=== PATIENT | female | born 1955 | race Caucasian/White ===

== ENCOUNTER 2022-07-18 06:56 | Outpatient (CLI) | payer MEDICARE, SELFPAY ==
[2022-07-18 08:13] LABS: Basophils Absolute Auto 0.04 K/mm3 (0.00-0.10); Basophils Percent Auto 0.5 % (0.0-1.0); Eosinophils Absolute Auto 0.15 K/mm3 (0.02-0.50); Eosinophils Percent Auto 1.8 % (1.0-6.0); Hematocrit 43.4 % (35.0-42.0); Hemoglobin 14.1 g/dL (11.7-13.8); Immature Granulocyte Absolute 0.03 K/mm3 (0.00-0.00); Immature Granulocyte Percent A 0.4 % (0.0-0.0); Lymphocytes Absolute Auto 2.25 K/mm3 (1.10-4.50); Lymphocytes Percent Auto 27.4 % (18.0-42.0); Mean Corpuscular HGB Conc 32.5 g/dL (32.0-36.0); Mean Corpuscular Hemoglobin 29.3 pg (27.0-31.0); Mean Corpuscular Volume 90.2 fL (78.0-102.0); Mean Platelet Volume 10.4 fl (9.2-11.8); Monocytes Absolute Auto 0.67 K/mm3 (0.10-0.90); Monocytes Percent Auto 8.2 % (2.0-11.0); Neutrophils Absolute Auto 5.1 K/mm3 (1.7-7.2); Neutrophils Percent Auto 61.7 % (50.0-70.0); Platelet Count Result 307 K/mm3 (150-420); Red Blood Count 4.81 M/mm3 (4.20-5.40); Red Cell Distribution Width 13.2 % (11.6-14.4); White Blood Count 8.2 K/mm3 (4.8-10.8)
[2022-07-18 08:20] LABS: Hemoglobin A1C 6.1 % (<5.7)
[2022-07-18 08:29] LABS: Add Urine Microscopic? NO; Appearance Urine Clear (Clear); Bilirubin Urine Negative (Negative); Blood Urine Negative (Negative); Color Urine Yellow (Yellow); Glucose Urine UA Negative (Negative); Ketones Urine Negative (Negative); Leukocyte Esterase Ur Negative (Negative); Nitrate Urine Negative (Negative); Protein Urine Negative (Negative); Specific Grav Ur 1.025 (1.010-1.020); Urobilinogen Urine 0.2 mg/dL (0.2-1.0)
[2022-07-18 08:33] LABS: Creatinine Urine 120.34 mg/dL (40-278); MALB Creatinine Ratio 20.6 mg/g (0-30); Microalbumin Urine Random 24.8 mg/L
[2022-07-18 08:47] LABS: Alanine Aminotransferase 22 U/L (14-59); Albumin Level 3.4 g/dL (3.4-5.0); Alkaline Phosphatase 117 U/L (46-116); Anion Gap 9 mmol/L (8-16); Aspartate Amino Transferase 11 U/L (15-37); Bilirubin,Total 0.6 mg/dL (0.00-1.00); Blood Urea Nitrogen 17 mg/dL (7-18); Calcium 8.8 mg/dL (8.5-10.1); Carbon Dioxide 27 mmol/L (21-32); Chloride 104 mmol/L (98-108); Cholesterol 174 mg/dL (0-200); Estimated Glomerular Filt Rate > 60; Glucose 115 mg/dL (70-99); HDL Direct 41 mg/dL (40-60); LDL Cholesterol Calculated 110 mg/dL (<130); NT Pro B Type Natriuretic Pept 392 pg/mL (0-125); Osmolality Calculated 292 mOsm/kg (285-295); Potassium 4.8 mmol/L (3.5-5.1); Sodium 140 mmol/L (136-145); Total Protein 7.3 g/dL (6.4-8.2); Triglycerides 117 mg/dL (0-150)
== END 2022-07-18 06:57 | disposition home or self-care (01) ==
LOC: CHSLAB 07:00
PROVIDERS: PCP Internal Medicine; Visit Provider Internal Medicine
DX: I10 Essential (primary) hypertension (principal); I48.91 Unspecified atrial fibrillation; I50.9 Heart failure, unspecified; E11.9 Type 2 diabetes mellitus without complications
CPT/HCPCS: 36415; 80053; 80061; 81003; 82043; 83036; 83880; 84443; 85025

== ENCOUNTER 2022-09-26 16:44 | Observation (INO) | payer MEDICARE, SELFPAY ==
[2022-09-26] VITALS (18 sets, daily range): BP systolic 112–162; BP diastolic 61–104; PULSE 70–112; RESP 16–20; TEMP 36.6–37.3; O2SAT 90–100; BMI 52.7
--- NOTE | ~2022-09-26 | CT_ITS ---
EXAMINATION: CT BRAIN W/O DATE: 09/26/2022 18:39 INDICATION: Anterior headache. Nausea, vomiting and diarrhea. TECHNIQUE: Computed tomography (CT) of the head was performed without intravenous contrast. The dose- length product was 681.00 mGy-cm. Automated exposure control and iterative reconstruction technique w ere employed. COMPARISON: No prior studies for comparison. FINDINGS: Normal brain parenchymal volume for age. Normal mendiola-white differentiation. No acute intrac ranial hemorrhage, infarction, mass or mass effect. No ventriculomegaly or midline shift. Midline sagittal images demonstrate a normal corpus callosum, c raniovertebral junction and sella turcica. Basilar cisterns are patent. Cerebellar tonsils extend bel ow the foramen magnum 8 mm, consistent with. Malformation. There is mild mucosal thickening of the ethmoid sinuses. Mastoids are pneumatized. IMPRESSION: 1. No acute intracranial abnormality. 2: Chiari-type 1 malformation. 3: Ethmoid sinusitis. Reviewed, dictated and finalized at location A.
--- NOTE | ~2022-09-26 | XR_ITS ---
XR chest 1V portable 09/26/2022 18:40 Indication: Productive cough. Wheezing. Procedure: AP portable chest Comparison: 06/27/2018 Findings: There is right perihilar infiltrates with peribronchial thickening. Cardiomegaly. No pleura l effusion or pneumothorax. No acute osseous abnormality. Impression: 1: Right perihilar infiltrates, suspicious for pneumonia. Reviewed, dictated and finalized at location A. Impression: 1: Right perihilar infiltrates, suspicious for pneumonia.
--- NOTE | 2022-09-26 16:51 | ED.GENADULT ---
HPI - General Adult General Chief complaint: Nausea/Vomiting/Diarrhea Stated complaint: headache; diarrhea Time Seen by Provider: 09/26/22 16:51 History of Present Illness HPI narrative: The patient is a 67-year-old woman with history of diabetes, atrial fibrillation on Eliquis, obesity, GERD, hypertension. Status post bilateral total knee replacement, hysterectomy, and right ankle ORIF. She has never smoked. For the last 4 days, the patient has had nausea vomiting and diarrhea. Today and yesterday, she has had 4 episodes of emesis each and has had 5 loose bowel movements each day. She does have an anterior headache. She does have a cough productive of sputum associated with rhinorrhea and wheezing. No fevers or chills or diaphoresis. Does have malaise. No dyspnea or chest pain or nasal congestion or sore throat or earache or abdominal pain or hematochezia or melena or constipation. Initial blood pressure by EMS was 180/100. She received Zofran 4 mg ODT by EMS and was transported here. Her nausea has resolved. She is a bit tachycardic on arrival 106. Related Data Home Medications Medication Instructions Recorded Confirmed apixaban 5 mg tablet (Eliquis) 5 mg PO BID 09/26/22 09/26/22 diltiazem HCl 120 mg 120 mg PO DAILY 09/26/22 09/26/22 capsule,extended release 24 hr lisinopril 20 mg tablet 20 mg PO DAILY 09/26/22 09/26/22 metformin 500 mg tablet 500 mg PO BID 09/26/22 09/26/22 metoprolol tartrate 50 mg tablet 50 mg PO BID 09/26/22 09/26/22 omeprazole 40 mg capsule,delayed 40 mg PO DAILY 09/26/22 09/26/22 release Allergies Allergy/AdvReac Type Severity Reaction Status Date / Time No Known Allergies Allergy Verified 09/26/22 17:12 Review of Systems Review of Systems: All systems reviewed & are unremarkable except as noted in HPI and below Constitutional: Constitutional: Reports as per HPI, Reports no additional constitutional complaints, Denies chills, Denies excessive sweating, Reports fatigue, Denies fever(s), Reports headache(s) and Reports weakness ( Generalized) Eyes: Eyes: Reports as per HPI, Reports no additional eye complaints, Denies change in vision and Denies photophobia ENT: Reports system reviewed and no additional complaints, except as documented, Reports as per HPI, Denies dysphagia, Denies vertigo, Denies dizziness, Denies lip swelling, Denies nasal congestion, Denies sore throat, Denies throat swelling and Denies tongue swelling Comments: rhinorrhea present Cardiovascular: Cardiovascular: Reports as per HPI, Reports no additional cardiovascular complaints, Denies chest pain, Denies syncope, Denies rapid heart rate and Denies dyspnea Respiratory: Respiratory: Reports as per HPI, Reports no additional respiratory complaints, Denies chest congestion, Reports cough, Denies dyspnea and Reports wheezing Gastrointestinal: Gastrointestinal: Reports as per HPI, Reports no additional gastrointestinal complaints, Denies abdominal pain, Denies constipation, Denies dysphagia, Reports diarrhea, Reports nausea and Reports vomiting Genitourinary: Genitourinary: Reports as per HPI, Denies hematuria, Denies urinary frequency, Denies dysuria, Denies urinary incontinence and Denies urinary urgency Musculoskeletal: Musculoskeletal: Reports no additional musculoskeletal complaints, Denies back pain, Denies myalgias, Denies arthralgias, Denies joint swelling and Denies numbness Integumentary/Breasts: Skin/Breast: Reports system reviewed and no additional complaints, except as docu, Denies pruritus, Denies erythema, Denies rash and Denies skin ulcer Neurologic: Reports system reviewed and no additional complaints, except as documented, Reports as per HPI, Denies confusion, Denies vertigo, Denies dizziness, Denies syncope, Denies focal weakness and Denies numbness Psychiatric: Psychiatric: Reports as per HPI, Denies anxiety, Denies confusion, Denies depression, Denies homicidal ideation and Denies suicidal ideation Endocr
[2022-09-26] MEDS: IPRATROPIUM 0.5 MG/ALBUTEROL SULFATE 2.5 MG AMPUL.NEB 3 ML INHALATION ×2 (17:10→19:09)
[2022-09-26] MEDS: traMADol HCL (*CRX) 50 MG TABLET 100 MG PO (17:24)
[2022-09-26] MEDS: BENZONATATE 100 MG CAPSULE PO (17:24)
[2022-09-26] MEDS: guaiFENesin/DEXTROMETHORPHAN 5 ML UDC 10 ML PO (17:24)
[2022-09-26] MEDS: ACETAMINOPHEN 500 MG TABLET 1000 MG PO (17:25)
[2022-09-26 17:32] LABS: Basophils Absolute Auto 0.03 K/mm3 (0.00-0.10); Basophils Percent Auto 0.5 % (0.0-1.0); Eosinophils Absolute Auto 0.08 K/mm3 (0.02-0.50); Eosinophils Percent Auto 1.4 % (1.0-6.0); Hemoglobin 14.9 g/dL (11.7-13.8); Immature Granulocyte Absolute 0.02 K/mm3 (0.00-0.00); Immature Granulocyte Percent A 0.4 % (0.0-0.0); Lymphocytes Absolute Auto 1.47 K/mm3 (1.10-4.50); Lymphocytes Percent Auto 26.4 % (18.0-42.0); Mean Corpuscular HGB Conc 33.1 g/dL (32.0-36.0); Mean Corpuscular Volume 90.7 fL (78.0-102.0); Mean Platelet Volume 10.2 fl (9.2-11.8); Monocytes Absolute Auto 0.56 K/mm3 (0.10-0.90); Monocytes Percent Auto 10.1 % (2.0-11.0); Neutrophils Absolute Auto 3.4 K/mm3 (1.7-7.2); Neutrophils Percent Auto 61.2 % (50.0-70.0); Platelet Count Result 204 K/mm3 (150-420); Red Blood Count 4.96 M/mm3 (4.20-5.40); Red Cell Distribution Width 13.2 % (11.6-14.4); White Blood Count 5.6 K/mm3 (4.8-10.8)
[2022-09-26 17:53] LABS: Lactic Acid Reflex 0.8 mmol/L (0.4-2.0)
[2022-09-26] MEDS: SODIUM CHLORIDE 0.9% IV 1,000 ML 999 ML IV CONT (17:54)
[2022-09-26 17:56] LABS: Acetone Negative (Negative)
[2022-09-26] MEDS: LABETALOL HCL INJ 100 MG/20 ML VIAL 20 MG IV PUSH (17:57)
[2022-09-26 17:58] LABS: Strep Group A RT-PCR NOT DETECTED (Negative)
[2022-09-26] MEDS: methylPREDNISolone SOD SUCC 125 MG VIAL IV PUSH (18:01)
[2022-09-26] MEDS: KETOROLAC 30 MG/ML VIAL (*BKC) 15 MG IV PUSH (18:02)
[2022-09-26 18:04] LABS: Alanine Aminotransferase 47 U/L (14-59); Albumin Level 3.4 g/dL (3.4-5.0); Alkaline Phosphatase 118 U/L (46-116); Anion Gap 11 mmol/L (8-16); Aspartate Amino Transferase 24 U/L (15-37); Bilirubin,Total 0.5 mg/dL (0.00-1.00); Blood Urea Nitrogen 11 mg/dL (7-18); CRP 1.8 mg/dL (0.0-0.9); Calcium 8.4 mg/dL (8.5-10.1); Carbon Dioxide 26 mmol/L (21-32); Chloride 103 mmol/L (98-108); Estimated CRCL calculation 92 ml/min; Estimated Glomerular Filt Rate > 60; Glucose 106 mg/dL (70-99); Osmolality Calculated 289 mOsm/kg (285-295); Potassium 3.9 mmol/L (3.5-5.1); Sodium 140 mmol/L (136-145); Total Protein 7.7 g/dL (6.4-8.2)
[2022-09-26] MEDS: diphenhydrAMINE HCl INJ 50 MG/ML VIAL IV PUSH (18:04)
[2022-09-26 18:06] LABS: Amylase 42 U/L (25-115); Lipase 44 U/L (16-77); Magnesium 1.9 mg/dL (1.8-2.4)
[2022-09-26 18:09] LABS: Influenza A QL RT-PCR Negative (Negative); Influenza B QL RT-PCR Negative (Negative); SARS-CoV-2 RNA PCR Negative (Negative)
[2022-09-26 18:10] LABS: RSV RNA, RT-PCR Negative (Negative)
[2022-09-26 18:36] LABS: Erythrocyte Sedimentation Rate 22 mm/hr (0-20)
[2022-09-26] MEDS: cefTRIAXone 2 GM/NS 100 ML 2 GM/100 ML BAG IVPB (19:13)
--- NOTE | 2022-09-26 20:05 | PC.NURSE ---
ERP Dr Betancourt spoke to pt about 23 hr obs. due to pneumonia and pt still has wheezing and cough present. Pt is agreeable to staying.
[2022-09-26 20:21] LABS: Glucose Point of Care 162 mg/dl (65-105)
--- NOTE | 2022-09-26 20:26 | PC.NURSE ---
Call placed to floor for bed, pt to go to Rm 203 for obs.
[2022-09-26 21:37] LABS: Glucose Point of Care 129 mg/dl (65-105)
--- NOTE | 2022-09-26 23:42 | ADMGEN ---
This patient, Radha Silva, was admitted to 2nd Floor Room 203-2. Patient/family oriented to hospital policies and general routines including ID bracelet, bed and alarms, pain management, procedures, bathroom and other care routines, personal items, smoking policy, room service/diet, and visiting hours. Information on how to activate the Rapid Response Team has been discussed. Patient/Family are encouraged to report perceived risks to care and to ask questions if they do not understand what they are told or what they should do.
[2022-09-27] VITALS: BP 131/73; PULSE 94; RESP 20; TEMP 36.4; O2SAT 90
[2022-09-27] MEDS: methylPREDNISolone SOD SUCC 40 MG VIAL IV PUSH ×2 (00:10→08:50)
[2022-09-27 04:47] VITALS: PULSE 80; RESP 20; O2SAT 98
[2022-09-27] MEDS: IPRATROPIUM 0.5 MG/ALBUTEROL SULFATE 2.5 MG AMPUL.NEB 3 ML INHALATION ×2 (04:47→08:53)
[2022-09-27 04:54] VITALS: PULSE 88; RESP 20
[2022-09-27 05:11] LABS: Hematocrit 41.4 % (35.0-42.0); Hemoglobin 13.6 g/dL (11.7-13.8); Mean Corpuscular HGB Conc 32.9 g/dL (32.0-36.0); Mean Corpuscular Hemoglobin 29.8 pg (27.0-31.0); Mean Corpuscular Volume 90.6 fL (78.0-102.0); Mean Platelet Volume 10.3 fl (9.2-11.8); Platelet Count Result 187 K/mm3 (150-420); Red Blood Count 4.57 M/mm3 (4.20-5.40); Red Cell Distribution Width 13.2 % (11.6-14.4); White Blood Count 3.2 K/mm3 (4.8-10.8)
[2022-09-27 05:28] LABS: Anion Gap 8 mmol/L (8-16); Blood Urea Nitrogen 13 mg/dL (7-18); Calcium 8.1 mg/dL (8.5-10.1); Carbon Dioxide 26 mmol/L (21-32); Chloride 105 mmol/L (98-108); Estimated CRCL calculation 101 ml/min; Estimated Glomerular Filt Rate > 60; Glucose 158 mg/dL (70-99); Osmolality Calculated 291 mOsm/kg (285-295); Potassium 4.5 mmol/L (3.5-5.1); Sodium 139 mmol/L (136-145)
[2022-09-27 05:40] LABS: Band Neutrophils Percent 1 % (0-6); Neutrophils Absolute Manual 2.65 K/mm3 (1.7-7.2); Neutrophils Percent Manual 82 % (46-73); Total Cells Counted 100
[2022-09-27 05:41] LABS: Basophils Percent Manual 0 % (0-1); Eosinophils Percent Manual 0 % (1-6); Lymphocytes Absolute Manual 0.48 K/mm3 (1.1-4.5); Lymphocytes Percent Manual 15 % (18-44); Monocytes Absolute Manual 0.06 K/mm3 (0.1-0.90); Monocytes Percent Manual 2 % (3-9); Platelet Estimate Adequate (Adequate)
--- NOTE | 2022-09-27 07:50 | PM.SD2 ---
Same Day Admit/Disch: HPI History of Present Illness Chief complaint: PNEUMONIA Narrative: Radha Silva is a 67 year old female arrative: ? The patient is a 67-year-old woman with history of diabetes, atrial fibrillation on Eliquis, obesity, GERD, hypertension.? Status post bilateral total knee replacement, hysterectomy, and right ankle ORIF.? She has never smoked.? For the last 4 days, the patient has had nausea vomiting and diarrhea.? Today and yesterday, she has had 4 episodes of emesis each and has had 5 loose bowel movements each day.? She does have an anterior headache.? She does have a cough productive of sputum associated with rhinorrhea and wheezing.? No fevers or chills or diaphoresis.? Does have malaise.? No dyspnea or chest pain or nasal congestion or sore throat or earache or abdominal pain or hematochezia or melena or constipation. Initial blood pressure by EMS was 180/100.? She received Zofran 4 mg ODT by EMS and was transported here.? Her nausea has resolved.? She is a bit tachycardic on arrival 106. [facility] Social History Social History (System 09/28/22 @ 11:55 by Iris Jamil) Smoking status: Never smoker Second hand tobacco smoke exposure: Yes (Patient's parents both smoked.) Alcohol intake: never Substance use: never Lack of Transportation: No Lack of Food: Never True Current Housing: I Have Housing Concerned About Future Housing: No Difficulty Paying Gas/Electric Bills: No Difficulty Paying for Meds: No Currently Unemployed: No Education: High School Diploma/GED Difficulty w/ Childcare or Family Care: No Spiritual care concerns: No Same Day Admit/Disch: Med Pre-admit Medications Home Medications Medication Instructions Recorded Confirmed Type apixaban 5 mg tablet (Eliquis) 5 mg PO BID 09/26/22 09/26/22 History diltiazem HCl 120 mg 120 mg PO DAILY 09/26/22 09/26/22 History capsule,extended release 24 hr lisinopril 20 mg tablet 20 mg PO DAILY 09/26/22 09/26/22 History metformin 500 mg tablet 500 mg PO BID 09/26/22 09/26/22 History metoprolol tartrate 50 mg tablet 50 mg PO BID 09/26/22 09/26/22 History omeprazole 40 mg capsule,delayed 40 mg PO DAILY 09/26/22 09/26/22 History release albuterol sulfate 90 mcg/actuation 2 puff inhalation QID PRN 09/27/22 Rx aerosol inhaler shortness of breath or wheezing #8.5 grams azithromycin 250 mg tablet See Rx Instructions PO .COMPLEX #6 09/27/22 Rx (Zithromax Z-[place]) tabs benzonatate 100 mg capsule 100 mg PO TID PRN Cough #30 caps 09/27/22 Rx dextromethorphan-guaifenesin 10 10 ml PO Q6HR PRN Cough #200 mL 09/27/22 Rx mg-100 mg/5 mL oral liquid (Robafen DM Cough) ipratropium 0.5 mg-albuterol 3 mg 3 ml inhalation TID #60 mL 09/27/22 Rx (2.5 mg base)/3 mL nebulization soln miconazole nitrate 2 % topical 1 applic topical Q12HR #30 grams 09/27/22 Rx cream Exam Narrative: GENERAL:Well-appearing, well-nourished, and in no acute distress. HEAD:Normocephalic, atraumatic. EYES: PERRLA and EOMI. ENT: Nares clear, no rhinorrhea or epistaxis. Mucous membranes moist. CHEST: Clear to auscultation. No respiratory distress. HEART: Regular rate and rhythm. No murmur heard. Normal peripheral pulses. ABDOMEN: Soft, nontender, nondistended, normal active bowel sounds. EXTREMITIES: Normal range of motion. No edema. SKIN: Warm, dry, no rash. NEURO: No focal deficits. Alert and oriented x3. DS: Data Data Completed and Pending Labs on day of discharge: Labs from last 24 hours 09/27/22 09/27/22 09/26/22 04:57 04:57 21:31 WBC 3.2 L RBC 4.57 Hgb 13.6 Hct 41.4 MCV 90.6 MCH 29.8 MCHC 32.9 RDW 13.2 Plt Count 187 MPV 10.3 Immature Gran % (Auto) Not Reportable Neut % (Auto) Not Reportable Lymph % (Auto) Not Reportable [place] % (Auto) Not Reportable Eos % (Auto) Not Reportable Baso % (Auto) Not Reportable Lymph # (Auto) Not Reportable [place] # (
[2022-09-27 08:00] VITALS: BP 138/79; PULSE 83; RESP 17; TEMP 36.2; O2SAT 94
[2022-09-27 08:50] VITALS: PULSE 83; PULSE 84; RESP 17; O2SAT 94
[2022-09-27] MEDS: lisinopriL 20 MG TABLET PO (08:50)
[2022-09-27] MEDS: APIXABAN 2.5 MG TABLET 5 MG PO (08:50)
[2022-09-27] MEDS: METOPROLOL TARTRATE 50 MG TAB PO (08:50)
[2022-09-27] MEDS: MICONAZOLE NITRATE 2% CREAM 30 GM TUBE 1 APPLIC TOPICAL (08:50)
[2022-09-27] MEDS: PANTOPRAZOLE 40 MG TABLET PO (08:50)
[2022-09-27 09:00] VITALS: O2SAT 96
--- NOTE | 2022-09-27 11:04 | PC.NURSE ---
Discharge packet reviewed with patient. All questions answered. Pt sitting in chair awaiting ride.
--- NOTE | 2022-09-29 13:23 | PC.NURSE ---
Pt states she received and understood her discharge instructions. Pt has no other comments.
== END 2022-09-27 11:25 | disposition home or self-care (01) ==
LOC: CHSED 20:22 → CHS2ND 20:28
PROVIDERS: Nurse Practitioner Family; Admitting Provider Internal Medicine; Emergency Provider Emergency Medicine; PCP Internal Medicine; Visit Provider Internal Medicine
DX: J18.9 Pneumonia, unspecified organism (principal); E11.9 Type 2 diabetes mellitus without complications; I48.20 Chronic atrial fibrillation, unspecified; K21.9 Gastro-esophageal reflux disease without esophagitis; I10 Essential (primary) hypertension; Z79.01 Long term (current) use of anticoagulants; Z20.822 Contact with and (suspected) exposure to COVID-19; Z96.621 Presence of right artificial elbow joint; Z96.653 Presence of artificial knee joint, bilateral
CPT/HCPCS: 36415; 70450; 71045; 80048; 80053; 82010; 82150; 82948; 83605; 83690; 83735; 85025; 85652; 86140; 87637; 87651; 94640; 96361; 96365; 96367; 96375; 99285; A9270; G0378; J0456; J0696; J1200; J1885; J2920; J2930; J7030; J7060

== ENCOUNTER 2022-10-07 11:44 | Outpatient (CLI) | payer MEDICARE, SELFPAY ==
--- NOTE | ~2022-10-07 | XR_ITS ---
EXAMINATION: XR sinus min 3V INDICATION: Sinusitis TECHNIQUE: Five views of the paranasal sinuses are obtained. COMPARISON: CT, 09/26/2022 FINDINGS: The paranasal sinuses are well pneumatized. Mucosal thickening of the ethmoidal air cells s een on the comparison CT is not well appreciated on these radiographs. No sinus opacification is iden tified. The visualized osseous structures are unremarkable. IMPRESSION: 1. Unremarkable sinus radiographs. Mucosal thickening of the ethmoidal air cells seen on the comparis on CT is not well demonstrated. Reviewed, dictated and finalized at location B. IMPRESSION: 1. Unremarkable sinus radiographs. Mucosal thickening of the ethmoidal air cell s seen on the comparison CT is not well demonstrated.
--- NOTE | ~2022-10-07 | XR_ITS ---
EXAMINATION: XR chest 2V DATE: 10/07/2022 12:37 INDICATION: Congestive heart failure, productive cough TECHNIQUE: PA and lateral views of the chest are obtained. COMPARISON: 09/26/2022 FINDINGS: The lungs are free of acute opacities. No pleural effusion or pneumothorax. The cardiomedia stinal silhouette is normal. There is moderate thoracic spondylosis. IMPRESSION: 1. No acute cardiopulmonary abnormality. Reviewed, dictated and finalized at location B.
[2022-10-07 12:08] LABS: Basophils Absolute Auto 0.04 K/mm3 (0.00-0.10); Basophils Percent Auto 0.4 % (0.0-1.0); Hematocrit 45.1 % (35.0-42.0); Hemoglobin 14.8 g/dL (11.7-13.8); Immature Granulocyte Absolute 0.03 K/mm3 (0.00-0.00); Immature Granulocyte Percent A 0.3 % (0.0-0.0); Lymphocytes Absolute Auto 2.26 K/mm3 (1.10-4.50); Lymphocytes Percent Auto 23.2 % (18.0-42.0); Mean Corpuscular HGB Conc 32.8 g/dL (32.0-36.0); Mean Corpuscular Hemoglobin 29.3 pg (27.0-31.0); Mean Corpuscular Volume 89.3 fL (78.0-102.0); Mean Platelet Volume 9.9 fl (9.2-11.8); Monocytes Absolute Auto 0.63 K/mm3 (0.10-0.90); Monocytes Percent Auto 6.5 % (2.0-11.0); Neutrophils Absolute Auto 6.7 K/mm3 (1.7-7.2); Neutrophils Percent Auto 68.6 % (50.0-70.0); Platelet Count Result 269 K/mm3 (150-420); Red Blood Count 5.05 M/mm3 (4.20-5.40); White Blood Count 9.8 K/mm3 (4.8-10.8)
[2022-10-07 12:43] LABS: Alanine Aminotransferase 34 U/L (14-59); Albumin Level 3.6 g/dL (3.4-5.0); Alkaline Phosphatase 108 U/L (46-116); Anion Gap 7 mmol/L (8-16); Aspartate Amino Transferase 19 U/L (15-37); Bilirubin,Total 0.8 mg/dL (0.00-1.00); Blood Urea Nitrogen 11 mg/dL (7-18); CRP 1.5 mg/dL (0.0-0.9); Calcium 8.6 mg/dL (8.5-10.1); Carbon Dioxide 30 mmol/L (21-32); Chloride 104 mmol/L (98-108); Estimated Glomerular Filt Rate > 60; Glucose 110 mg/dL (70-99); Osmolality Calculated 292 mOsm/kg (285-295); Potassium 4.4 mmol/L (3.5-5.1); Sodium 141 mmol/L (136-145); Total Protein 7.2 g/dL (6.4-8.2)
[2022-10-07 13:01] LABS: NT Pro B Type Natriuretic Pept 234 pg/mL (0-125)
== END 2022-10-07 11:45 | disposition home or self-care (01) ==
LOC: CHSLAB 11:46
PROVIDERS: PCP Internal Medicine; Visit Provider Internal Medicine
DX: J18.9 Pneumonia, unspecified organism (principal); I50.9 Heart failure, unspecified; J32.9 Chronic sinusitis, unspecified
CPT/HCPCS: 36415; 70220; 71046; 80053; 83880; 85025; 86140

== ENCOUNTER 2023-01-10 07:12 | Outpatient (CLI) | payer MEDICARE, SELFPAY ==
--- NOTE | ~2023-01-10 | DEXA_ITS ---
Bone Density Report Name: MIREYA OWENS Age: 67 Sex: Female Ethnicity: White Date of : 1955 Indication: postmenopausal; screening for osteoporosis; hysterectomy; Referring Provider: Lucy, Nadiya Segovia Study: Bone densitometry was performed. Exam Date: January 10, 2023 Accession number: [id number] There is hypertrophic degenerative change of the lumbar spine, which results in higher than expected spine bone mineral density measurements. These spine BMD and T score and Z score measurements are not reflective of the patient's true general bone mineral density. Bone Density: Region BMD T-score Z-score Classification AP Spine(L2, L3, L4) 1.382 2.8 4.7 Normal Femoral Neck (Left) 0.789 -0.5 1.0 Normal Total Hip (Left) 1.014 0.6 1.9 Normal Femoral Neck (Right) 0.827 -0.2 1.4 Normal Total Hip (Right) 1.055 0.9 2.2 Normal Femoral Neck Mean 0.808 -0.4 1.2 Normal Total Hip Mean 1.034 0.8 2.1 Normal World Health Organization criteria for BMD impression classify patients as: Normal (T-score at or above -1.0), Osteopenia (T-score between -1.0 and -2.5), or Osteoporosis (T-score at or below -2.5). 10-year Fracture Risk: FRAX not reported because: All T-scores for Spine Total, Hip Total, Femoral Neck at or above -1.0 Clinical Information Provided by Patient: Has the following medical conditions: Hysterectomy Patient maximum height was 65 Menopause Age: 51 No regular weight bearing exercise Onset of menses at age 17 Number of children 4 Impression: The patient has normal bone mass. There is hypertrophic degenerative change of the lumbar spine, which results in higher than expected spine bone mineral density measurements. These spine BMD and T score and Z score measurements are not reflective of the patient's true general bone mineral density. Discussion: BONE DENSITY IS ABOVE THE MINIMUM DESIRABLE LEVEL AT ALL SKELETAL SITES TESTED. This patient?s bone mineral density is above the minimum desirable level (T-score -1.0 or better) at all sites measured. The patient should follow a healthful lifestyle (good nutrition with adequate calcium and vitamin D, and appropriate weight-bearing exercise). Follow-Up: Consider repeating this study in 5 years or sooner if there is some new clinical indication. Reported by: Dr. Vikash Cervantes on 01/10/2023 7:40:00 AM. Reviewed, dictated and finalized at location A. [facility]
== END 2023-01-10 07:13 | disposition home or self-care (01) ==
LOC: CHSIMG 07:14
PROVIDERS: PCP Family Medicine; Visit Provider Physician Assistant
DX: Z78.0 Asymptomatic menopausal state (principal)
CPT/HCPCS: 77080

== ENCOUNTER 2023-03-23 07:42 | Outpatient (CLI) | payer MEDICARE, SELFPAY ==
[2023-03-23 08:21] LABS: Creatinine Urine 213.53 mg/dL (40-278); MALB Creatinine Ratio 34.4 mg/g (0-30); Microalbumin Urine Random 73.5 mg/L
[2023-03-23 09:05] LABS: Alanine Aminotransferase 12 U/L (14-59); Albumin Level 3.4 g/dL (3.4-5.0); Alkaline Phosphatase 128 U/L (46-116); Anion Gap 9 mmol/L (8-16); Aspartate Amino Transferase 11 U/L (15-37); Bilirubin,Total 0.6 mg/dL (0.00-1.00); Blood Urea Nitrogen 13 mg/dL (7-18); Calcium 8.9 mg/dL (8.5-10.1); Carbon Dioxide 26 mmol/L (21-32); Chloride 104 mmol/L (98-108); Cholesterol 138 mg/dL (0-200); Estimated Glomerular Filt Rate > 60; Glucose 103 mg/dL (70-99); HDL Direct 49 mg/dL (40-60); LDL Cholesterol Calculated 74 mg/dL (<130); Osmolality Calculated 288 mOsm/kg (285-295); Sodium 139 mmol/L (136-145); Triglycerides 77 mg/dL (0-150)
[2023-03-23 09:06] LABS: Thyroid Stimulating Hormone Reflex 2.08 u/IU/mL (0.36-3.74)
== END 2023-03-23 07:43 | disposition home or self-care (01) ==
LOC: CHSLAB 07:44
PROVIDERS: PCP Family Medicine; Visit Provider Physician Assistant
DX: E78.2 Mixed hyperlipidemia (principal); E11.9 Type 2 diabetes mellitus without complications
CPT/HCPCS: 36415; 80053; 80061; 82043; 83036; 84443

== ENCOUNTER 2023-05-19 11:54 | Outpatient (CLI) | payer MEDICARE, SELFPAY ==
--- NOTE | ~2023-05-19 | XR_ITS ---
EXAMINATION: XR hip RT min 2V DATE: 05/19/2023 12:11 INDICATION: Right hip pain. TECHNIQUE: 2 views right hip were obtained. COMPARISON: None. FINDINGS: Bone alignment is normal. No fracture. There is severe lumbar spondylosis. There is mild ri ght hip osteoarthritis. Osteitis pubis is noted. IMPRESSION: 1. Mild right hip osteoarthritis. Reviewed, dictated and finalized at location E. [employer]
== END 2023-05-19 11:55 | disposition home or self-care (01) ==
LOC: CHSIMG 11:57
PROVIDERS: PCP Family Medicine; Visit Provider Physician Assistant
DX: M16.11 Unilateral primary osteoarthritis, right hip (principal)
CPT/HCPCS: 73502

== ENCOUNTER 2023-07-26 10:19 | Outpatient (CLI) | payer MEDICARE, SELFPAY ==
[2023-07-26 10:57] LABS: Hemoglobin A1C 5.4 % (<5.7)
== END 2023-07-26 10:20 | disposition home or self-care (01) ==
LOC: CHSLAB 10:22
PROVIDERS: PCP Family Medicine; Visit Provider Physician Assistant
DX: E11.9 Type 2 diabetes mellitus without complications (principal)
CPT/HCPCS: 36415; 83036